=== PATIENT | male | born 1980 | race Caucasian/White ===

== ENCOUNTER 2020-07-25 10:17 | Emergency (ER) | payer OTHER ==
[~2020-07-25] VITALS: Ht 165.1 cm; Wt 81.6 kg
[~2020-07-25 10:17] MED LIST: HYDROCODONE BIT1 T11 PO; INDOCIN50 MG PO
== END 2020-07-25 11:43 | disposition home or self-care (01) ==
LOC: ED 10:17
DX: S93.402A Sprain of unspecified ligament of left ankle, initial encounter (principal); R21 Rash and other nonspecific skin eruption; M79.672 Pain in left foot; Z79.899 Other long term (current) drug therapy; X58.XXXA Exposure to other specified factors, initial encounter; Y93.89 Activity, other specified; Y92.89 Other specified places as the place of occurrence of the external cause; Y99.8 Other external cause status

== ENCOUNTER 2023-01-11 15:37 | Emergency (ER) | payer OTHER ==
[~2023-01-11] VITALS: Wt 81.6 kg
[2023-01-11 16:42] LABS: BASO # 0.1 10*3/uL (0.0-0.1); BASO % 0.7 % (0.0-1.0); EOS % 0.3 % (1.0-4.0); HEMATOCRIT 42.4 % (42.0-52.0); LYMPH # 1.1 10*3/uL (1.3-4.4); LYMPH % 15.8 % (27.0-41.0); MEAN CELL VOLUME 99.5 fl (80.0-94.0); MEAN CORPUSCULAR HGB CONC 35.1 g/dl (33.0-37.0); MEAN PLATELET VOLUME 9.1 fl (9.6-12.3); MONO # 0.6 10*3/uL (0.1-1.0); MONO % 8.7 % (3.0-9.0); NEUT # 5.1 10*3/uL (2.3-7.9); NEUT % 74.4 % (47.0-73.0); PLATELET COUNT AUTOMATED 216 10*3/uL (130-400); RED BLOOD COUNT 4.26 10*6/uL (4.50-5.90); RED CELL DISTRI WIDTH 12.2 % (0-14.5); WHITE BLOOD COUNT 6.9 10*3/uL (4.8-10.8)
[2023-01-11 17:03] LABS: ALKALINE PHOSPHATASE 96 U/L (46-116); BUN 6 mg/dl (9-23); CHLORIDE 102 mmol/L (98-107); POTASSIUM 4.1 mmol/L (3.4-5.1); SGPT/ALT 45 U/L (5-49); TOTAL PROTEIN 7.1 gm/dL (6.0-8.0)
[2023-01-11] MEDS ORDERED: ONDANSETRON4 MG SL (17:49)
== END 2023-01-11 17:55 | disposition home or self-care (01) ==
LOC: ED 15:37
PROVIDERS: Physician Assistant Medical
DX: R53.1 Weakness (principal)

== ENCOUNTER 2023-04-08 14:21 | Emergency (ER) | payer OTHER ==
[~2023-04-08] VITALS: Ht 177.8 cm; Wt 83.9 kg
[~2023-04-08 14:21] MED LIST changes: +ONDANSETRON4 MG SL
[2023-04-08 15:07] LABS: BASO % 0.7 % (0.0-1.0); EOS % 0.5 % (1.0-4.0); HEMATOCRIT 43.2 % (42.0-52.0); LYMPH # 1.2 10*3/uL (1.3-4.4); LYMPH % 20.9 % (27.0-41.0); MEAN CELL VOLUME 102.9 fl (80.0-94.0); MEAN CORPUSCULAR HGB 34.8 pg (27.0-31.0); MEAN CORPUSCULAR HGB CONC 33.8 g/dl (33.0-37.0); MEAN PLATELET VOLUME 8.9 fl (9.6-12.3); MONO # 0.5 10*3/uL (0.1-1.0); MONO % 8.3 % (3.0-9.0); NEUT # 4.1 10*3/uL (2.3-7.9); NEUT % 69.4 % (47.0-73.0); PLATELET COUNT AUTOMATED 219 10*3/uL (130-400); RED CELL DISTRI WIDTH 11.8 % (0-14.5); WHITE BLOOD COUNT 5.9 10*3/uL (4.8-10.8)
[2023-04-08 15:31] LABS: ALKALINE PHOSPHATASE 95 U/L (46-116); BUN 7 mg/dl (9-23); CHLORIDE 105 mmol/L (98-107); POTASSIUM 4.1 mmol/L (3.4-5.1); SGPT/ALT 58 U/L (5-49); TOTAL PROTEIN 7.1 gm/dL (6.0-8.0)
[2023-04-08] MEDS ORDERED: CLINDAMYCIN HC300 MG PO (15:51)
== END 2023-04-08 15:59 | disposition home or self-care (01) ==
LOC: ED 14:21
PROVIDERS: Emergency Medicine
DX: R20.0 Anesthesia of skin (principal); L70.9 Acne, unspecified

== ENCOUNTER → 2023-05-08 | Outpatient (CLI) | payer OTHER ==
[~2023-05-08] MED LIST changes: +CLINDAMYCIN HC300 MG PO
== END | disposition home or self-care (01) ==
LOC: US 01:25
PROVIDERS: ATTEND Nurse Practitioner Family
DX: K76.0 Fatty (change of) liver, not elsewhere classified (principal); R79.89 Other specified abnormal findings of blood chemistry

== ENCOUNTER 2023-07-09 15:50 | Emergency (ER) | payer OTHER ==
[~2023-07-09] VITALS: Ht 167.6 cm; Wt 84.8 kg
[2023-07-09] MEDS ORDERED: Ketorolac Tromethamine 60 MG/2 ML VIAL IM ONE (16:10)
[2023-07-09] MEDS ORDERED: Dexamethasone Sodium Phospha 20 MG/5 ML VIAL IM ONE (16:10)
[2023-07-09] MEDS ORDERED: hydrOXYzine pamoate 25 MG CAP PO ONE (16:10)
[2023-07-09 16:22] LABS: BASO % 0.7 % (0.0-1.0); EOS # 0.1 10*3/uL (0.0-0.4); EOS % 0.8 % (1.0-4.0); LYMPH # 1.6 10*3/uL (1.3-4.4); LYMPH % 26.2 % (27.0-41.0); MEAN CELL VOLUME 100.7 fl (80.0-94.0); MEAN CORPUSCULAR HGB 33.5 pg (27.0-31.0); MEAN CORPUSCULAR HGB CONC 33.3 g/dl (33.0-37.0); MEAN PLATELET VOLUME 9.7 fl (9.6-12.3); MONO # 0.6 10*3/uL (0.1-1.0); MONO % 9.3 % (3.0-9.0); NEUT # 3.8 10*3/uL (2.3-7.9); NEUT % 62.8 % (47.0-73.0); PLATELET COUNT AUTOMATED 234 10*3/uL (130-400); RED BLOOD COUNT 4.57 10*6/uL (4.50-5.90); RED CELL DISTRI WIDTH 13.4 % (0-14.5)
[2023-07-09 16:47] LABS: ALKALINE PHOSPHATASE 80 U/L (46-116); BUN 12 mg/dl (9-23); CHLORIDE 103 mmol/L (98-107); LDH 152 U/L (120-246); LIPASE 51 U/L (12-53); SGPT/ALT 38 U/L (5-49); TOTAL PROTEIN 7.5 gm/dL (6.0-8.0)
[2023-07-09] MEDS ORDERED: CYCLOBENZAPRINE5 M3 PO (18:09)
[2023-07-09] MEDS ORDERED: VISTARIL25 MG PO (18:09)
== END 2023-07-09 18:53 | disposition home or self-care (01) ==
LOC: ED 15:50
PROVIDERS: Internal Medicine
DX: M62.830 Muscle spasm of back (principal); F41.9 Anxiety disorder, unspecified; R07.89 Other chest pain

== ENCOUNTER 2023-08-14 12:59 | Emergency (ER) | payer OTHER ==
[~2023-08-14] VITALS: Ht 165.1 cm; Wt 81.6 kg
[~2023-08-14 12:59] MED LIST changes: +CYCLOBENZAPRINE5 M3 PO; +VISTARIL25 MG PO
[2023-08-14 15:20] LABS: BASO % 0.5 % (0.0-1.0); EOS # 0.1 10*3/uL (0.0-0.4); EOS % 0.9 % (1.0-4.0); HEMATOCRIT 43.8 % (42.0-52.0); LYMPH # 1.5 10*3/uL (1.3-4.4); LYMPH % 18.2 % (27.0-41.0); MEAN CELL VOLUME 96.3 fl (80.0-94.0); MEAN CORPUSCULAR HGB 32.1 pg (27.0-31.0); MEAN CORPUSCULAR HGB CONC 33.3 g/dl (33.0-37.0); MEAN PLATELET VOLUME 8.9 fl (9.6-12.3); MONO # 0.7 10*3/uL (0.1-1.0); MONO % 9.1 % (3.0-9.0); NEUT # 5.8 10*3/uL (2.3-7.9); NEUT % 71.2 % (47.0-73.0); PLATELET COUNT AUTOMATED 321 10*3/uL (130-400); RED BLOOD COUNT 4.55 10*6/uL (4.50-5.90); RED CELL DISTRI WIDTH 11.9 % (0-14.5); WHITE BLOOD COUNT 8.1 10*3/uL (4.8-10.8)
[2023-08-14 15:30] LABS: ACT PARTIAL THROMBO TIME 29.5 SECONDS (20.0-32.1)
[2023-08-14 15:38] LABS: BUN 9 mg/dl (9-23); CHLORIDE 100 mmol/L (98-107); POTASSIUM 4.3 mmol/L (3.4-5.1)
[2023-08-14] MEDS ORDERED: PREDNISONE10 M1 PO (16:22)
== END 2023-08-14 16:35 | disposition home or self-care (01) ==
LOC: ED 12:59
PROVIDERS: Nurse Practitioner
DX: M10.071 Idiopathic gout, right ankle and foot (principal); Z79.899 Other long term (current) drug therapy; Z79.2 Long term (current) use of antibiotics